=== PATIENT | female | born 1995 | race Caucasian/White ===

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

== ENCOUNTER 2017-04-28 21:41 | Emergency (ER) | payer MEDICAID ==
[~2017-04-28] VITALS: Ht 162.6 cm; Wt 72.0 kg
[~2017-04-28 21:41] MED LIST changes: +NITR-58 PO
[2017-04-28 21:46] VITALS: Ht 162.6 cm; Wt 72.0 kg
[2017-04-28] MEDS ORDERED: KETOROLAC 60 MG INJ IM STA (22:41)
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
[2017-04-29] MEDS ORDERED: CYCL-319 PO (00:05)
[2017-04-29] MEDS ORDERED: IBUP-1542 PO (00:05)
[2017-04-29 00:18] VITALS: BP 103/57; PULSE 74; RESP 18; TEMP 97.4
== END 2017-04-29 00:18 | disposition home or self-care (01) ==
LOC: FTE 21:41
DX: S39.012A Strain of muscle, fascia and tendon of lower back, initial encounter (principal); R07.9 Chest pain, unspecified; V43.62XA Car passenger injured in collision with other type car in traffic accident, initial encounter
CPT/HCPCS: 71020; 72100; 96372; J1885; Z7502

== ENCOUNTER 2017-05-24 12:32 | Emergency (ER) | payer MEDICAID ==
[~2017-05-24] VITALS: Ht 160 cm; Wt 79.0 kg
[~2017-05-24 12:32] MED LIST changes: +CYCL-319 PO
[2017-05-24 12:33] VITALS: Ht 160 cm; Wt 79.0 kg
--- NOTE | 2017-05-24 15:02 | RADRPT ---
PROCEDURE: Left knee x-ray CLINICAL INDICATION: Knee pain TECHNIQUE: AP, lateral and tunnel views of the left knee were obtained. COMPARISON: None FINDINGS: There is normal mineralization. No acute fracture or dislocation is seen. There are no significant degenerative changes. There is no joint effusion. There is no significant soft tissue swelling. RPTAT: AA IMPRESSION: Normal x-ray of the left knee. .Pj Mckenna MD, MD Date Time Electronically viewed and signed by .Pj Mckenna MD, on 05/24/2017 15:02 .S/
[2017-05-24] MEDS ORDERED: IBUP-1542 PO (15:21)
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
== END 2017-05-24 15:36 | disposition home or self-care (01) ==
LOC: FTE 12:32
DX: M25.562 Pain in left knee (principal)
CPT/HCPCS: 73562; Z7502

== ENCOUNTER 2018-02-08 18:30 | Inpatient (IN) | END 2018-02-12 13:50 | disposition home or self-care (01) | DRG 775 ==

== ENCOUNTER 2018-09-18 18:27 | Emergency (ER) | payer MEDICAID ==
[~2018-09-18] VITALS: Ht 160 cm; Wt 83.6 kg
[~2018-09-18 18:27] MED LIST changes: -CYCL-319 PO; -NITR-58 PO
[2018-09-18 19:00] VITALS: BP 112/66; PULSE 78; RESP 20; Ht 160 cm; Wt 83.6 kg
--- NOTE | 2018-09-18 23:18 | ERD ---
ER Documentation Chief Complaint Chief Complaint vag bleeding yesterday. worse today. 5 weeks preg. +cramping. HPI 23-year-old female presents with vaginal bleeding and cramping since yesterday. She bled approximately 3 pads. She denies any fevers, vomiting, localized abdominal pain. She is a G4 para 3. She is taking vitamins. ROS All systems reviewed and are negative except as per history of present illness. Medications Home Meds Active Scripts Ibuprofen* (Ibuprofen*) 600 Mg Tablet, 600 MG PO Q6, #60 TAB 0 Refills Prov:VINNIE MENDOZA MD 02/11/18 Reported Medications Calcium Carbonate/Vitamin D3 (OYSTER SHELL CALCIUM TABLET) 1 Each Tablet, 1 EACH PO DAILY, TAB 07/13/16 Ferrous Sulfate (Iron) 325 Mg Capsule.er, 325 MG PO DAILY, CAP 07/13/16 #48/Iron Cb&Glu/Fa/B6 (CITRANATAL B-CALM COMBO PACK) 1 Each Tablet.seq, 1 EACH PO 04/01/14 Allergies Allergies: Coded Allergies: No Known Allergy (Unverified , 11/08/16) PMhx/Soc Medical and Surgical Hx: pt denies Medical Hx, pt denies Surgical Hx History of Surgery: No Anesthesia Reaction: No Hx Neurological Disorder: No Hx Respiratory Disorders: No Hx Cardiac Disorders: No Hx Psychiatric Problems: No Hx Miscellaneous Medical Probl: No Hx Alcohol Use: No Hx Substance Use: No Hx Tobacco Use: No Smoking Status: Never smoker FmHx Family History: No diabetes, No coronary disease, No other Physical Exam Vitals Vital Signs Date Temp Pulse Resp B/P (MAP) Pulse Ox O2 O2 Flow FiO2 Time Delivery Rate 09/18/18 99.2 78 20 112/66 98 19:00 (81) Physical Exam Const: No acute distress Head: Atraumatic Eyes: Normal Conjunctiva ENT: Normal External Ears, Nose and Mouth. Neck: Full range of motion. No meningismus. Resp: Clear to auscultation bilaterally Cardio: Regular rate and rhythm, no murmurs Abd: Soft, non tender, non distended. Normal bowel sounds Skin: No petechiae or rashes Back: No midline or flank tenderness Ext: No cyanosis, or edema Neur: Awake and alert Psych: Normal Mood and Affect Result Diagram: 09/18/182 Results 24 hrs Laboratory Tests Test 09/18/18 22:12 09/18/18 22:45 White Blood Count 10.3 10^3/ul Red Blood Count 4.68 10^6/ul Hemoglobin 13.3 g/dl Hematocrit 41.7 % Mean Corpuscular Volume 89.1 fl Mean Corpuscular Hemoglobin 28.4 pg Mean Corpuscular Hemoglobin Concent 31.9 g/dl Red Cell Distribution Width 14.0 % Platelet Count 196 10^3/UL Mean Platelet Volume 12.4 fl Immature Granulocytes % 0.300 % Neutrophils % 70.2 % Lymphocytes % 22.0 % Monocytes % 6.3 % Eosinophils % 0.9 % Basophils % 0.3 % Nucleated Red Blood Cells % 0.0 /100WBC Immature Granulocytes # 0.030 10^3/ul Neutrophils # 7.2 10^3/ul Lymphocytes # 2.3 10^3/ul Monocytes # 0.7 10^3/ul Eosinophils # 0.1 10^3/ul Basophils # 0.0 10^3/ul Nucleated Red Blood Cells # 0.0 10^3/ul Beta HCG, Quantitative 2438.6 mIU/ml Urine Color RED Urine Clarity CLOUDY Urine pH 6.0 Urine Specific [place] 1.023 Urine Ketones NEGATIVE mg/dL Urine Nitrite NEGATIVE mg/dL Urine Bilirubin NEGATIVE mg/dL Urine Urobilinogen NEGATIVE mg/dL Urine Leukocyte Esterase NEGATIVE Blanca/ul Urine Microscopic RBC > 182 /HPF Urine Microscopic WBC 0 /HPF Urine Hemoglobin 3+ mg/dL Urine Glucose NEGATIVE mg/dL Urine Total Protein 2+ mg/dl Procedures/MDM Pelvic ultrasound shows approximately 5-week intrauterine with positive heart tones without acute abnormalities. Patient is Rh+. Quantitative hCG is 2438. Patient stable throughout the ER course. Patient presents with vaginal cramping and bleeding first trimester . Differential includes early normal , threatened and less likely ectopic . I am recommending follow-up with primary doctor this week or 2-day recheck for persistent bleeding, pain and cramping. Current signs or symptoms do not suggest appendicitis, UTI, additional emergent cause of presenting complaints. The patient was stable with no new complaints during the ER course. Clinically, there is no current evidence to suggest meningitis, sepsis, acute abdomen, pneumonia, stroke, acute coronary syndrome, pulmonary embolism, aortic dissection or any other emergent condition appearing to require further evaluation or hospitalization. Patient counseled regarding my diagnostic impression and care plan. Prior to discharge all questions answered. Pt agrees with treatment plan and understands strict return precautions. Pt is instructed to follow up with primary care provider within 24-48 hours. Precautio nary instructions provided including instructions to return to the ER if not improving or for any worsening or changing symptoms or concerns. Departure Diagnosis: Primary Impression: Vaginal bleeding in patient at less than 20 weeks ges... Condition: Stable Patient Instructions: Bleeding During Early Additional Instructions: Ultrasound read as normal today. May be normal or early miscarriage. Recommend repeat in 2 days for persistent bleeding, sooner for pain, fevers, new or worsening symptoms. See primary doctor for follow-up this week. CL CAGLE MD Sep 18, 2018 23:18
[2018-09-18] MEDS ORDERED: ACET500C5 PO (23:57)
== END 2018-09-19 00:16 | disposition home or self-care (01) ==
LOC: FTE 18:27
DX: O20.9 Hemorrhage in early pregnancy, unspecified (principal); Z3A.01 Less than 8 weeks gestation of pregnancy
CPT/HCPCS: 76801; 76817; 81001; 84702; 85025; 86900; 86901; Z7502

== ENCOUNTER 2019-03-29 08:24 | Emergency (ER) | payer MEDICAID ==
[~2019-03-29] VITALS: Wt 77.0 kg
[~2019-03-29 08:24] MED LIST changes: +ACET500C5 PO
[2019-03-29] MEDS ORDERED: ACETAMINOPHEN 325 MG TAB PO STA (10:44)
[2019-03-29] MEDS ORDERED: ONDANSETRON (ODT) 4 MG TAB ODT STA (10:44)
[2019-03-29] MEDS ORDERED: NITR-58 PO (12:27)
[2019-03-29] MEDS ORDERED: ACET500C5 PO (12:27)
--- NOTE | 2019-03-29 12:29 | ERD ---
ER Documentation Chief Complaint Chief Complaint low back pain and intermittent spotting since last night. vag drainage. HPI 23 year old female A1 presents to the ED complaining of sudden onset of low back pain that radiates down to her lower abd. She states she is around 16 weeks . She states the pain is a sharp constant pain that feels like contractions. She rates the pain as 7/10. In addition, she reports small amounts of vaginal spotting x 1.5 days. She also notes burning sensation with urination. LMP: November 19 No [facility] doctor Spotting blood Denies blood clots Denies taking any medications Denies previous hx of similar events ROS All systems reviewed and are negative except as per history of present illness. Medications Home Meds Active Scripts Acetaminophen* (Tylophen*) 500 Mg Capsule, 1 CAP PO Q6H PRN for PAIN AND OR ELEVATED TEMP, #20 CAP Prov:CEM NEIL PA-C 03/29/19 Nitrofurantoin Monohyd Macrocr* (Macrobid*) 100 Mg Capsr, 100 MG PO Q12 for 7 Days, CAP Prov:CEM NEIL PA-C 03/29/19 Acetaminophen* (Tylophen*) 500 Mg Capsule, 1 CAP PO Q6H PRN for PAIN AND OR ELEVATED TEMP, #15 CAP Prov:CL CAGLE MD 09/18/18 Ibuprofen* (Ibuprofen*) 600 Mg Tablet, 600 MG PO Q6, #60 TAB 0 Refills Prov:VINNIE MENDOZA MD 02/11/18 Reported Medications Calcium Carbonate/Vitamin D3 (OYSTER SHELL CALCIUM TABLET) 1 Each Tablet, 1 EACH PO DAILY, TAB 07/13/16 Ferrous Sulfate (Iron) 325 Mg Capsule.er, 325 MG PO DAILY, CAP 07/13/16 #48/Iron Cb&Glu/Fa/B6 (CITRANATAL B-CALM COMBO PACK) 1 Each Tablet.seq, 1 EACH PO 04/01/14 Allergies Allergies: Coded Allergies: No Known Allergy (Unverified , 03/29/19) PMhx/Soc History of Surgery: No Anesthesia Reaction: No Hx Neurological Disorder: No Hx Respiratory Disorders: No Hx Cardiac Disorders: No Hx Psychiatric Problems: No Hx Miscellaneous Medical Probl: No Hx Alcohol Use: No Hx Substance Use: No Hx Tobacco Use: No Smoking Status: Never smoker FmHx Family History: No diabetes Physical Exam Vitals Vital Signs Date Temp Pulse Resp B/P (MAP) Pulse Ox O2 O2 Flow FiO2 Time Delivery Rate 03/29/19 98.2 76 18 119/56 99 Room Air 12:37 (77) 03/29/19 98.8 88 18 114/58 99 08:26 (76) Physical Exam Const: No acute distress Head: Atraumatic Eyes: Normal Conjunctiva ENT: Normal External Ears, Nose and Mouth. Neck: Full range of motion. No meningismus. Resp: Clear to auscultation bilaterally Cardio: Regular rate and rhythm, no murmurs Abd: Soft, normally extended abd for her . Tenderness across lower abd, most prevalent at suprapubic region. Normal bowel sounds Skin: No petechiae or rashes Back: Slight flank tenderness on right flank Ext: No cyanosis, or edema Neur: Awake and alert Psych: Normal Mood and Affect Result Diagram: 03/29/19 1056 03/29/19 1056 Results 24 hrs Laboratory Tests Test 03/29/19 10:56 White Blood Count 11.6 10^3/ul Red Blood Count 4.22 10^6/ul Hemoglobin 12.6 g/dl Hematocrit 38.8 % Mean Corpuscular Volume 91.9 fl Mean Corpuscular Hemoglobin 29.9 pg Mean Corpuscular Hemoglobin Concent 32.5 g/dl Red Cell Distribution Width 13.6 % Platelet Count 152 10^3/UL Mean Platelet Volume 12.8 fl Immature Granulocytes % 0.300 % Neutrophils % 78.3 % Lymphocytes % 16.1 % Monocytes % 4.7 % Eosinophils % 0.3 % Basophils % 0.3 % Nucleated Red Blood Cells % 0.0 /100WBC Immature Granulocytes # 0.040 10^3/ul Neutrophils # 9.1 10^3/ul Lymphocytes # 1.9 10^3/ul Monocytes # 0.6 10^3/ul Eosinophils # 0.0 10^3/ul Basophils # 0.0 10^3/ul Nucleated Red Blood Cells # 0.0 10^3/ul Urine Color YELLOW Urine Clarity CLOUDY Urine pH 6.0 Urine Specific [place] 1.016 Urine Ketones NEGATIVE mg/dL Urine Nitrite POSITIVE mg/dL Urine Bilirubin NEGATIVE mg/dL Urine Urobilinogen NEGATIVE mg/dL Urine Leukocyte Esterase 2+ Blanca/ul Urine Microscopic RBC 5 /HPF Urine Microscopic WBC 156 /HPF Urine Squamous Epithelial Cells FEW /HPF Urine Transitional Epithelial Cells FEW /HPF Urine Bacteria FEW /HPF Urine Mucus MODERATE /HPF Urine Hemoglobin 2+ mg/dL Urine Glucose NEGATIVE mg/dL Urine Total Protein 2+ mg/dl Sodium Level 138 mmol/L Potassium Level 3.8 mmol/L Chloride Level 104 mmol/L Carbon Dioxide Level 23 mmol/L Anion Gap 11 Blood Urea Nitrogen 6 mg/dl Creatinine 0.57 mg/dl Est Glomerular Filtrat Rate mL/min > 60 mL/min Glucose Level 92 mg/dl Calcium Level 9.3 mg/dl Beta HCG, Quantitative 44543.0 mIU/ml Current Medications Medications Dose Sig/Joyce Start Time Status Last (Trade) Ordered Route PRN Stop Time Admin Dose Reason Admin 650 mg ONCE STAT 03/29/19 DC 03/29/19 Acetaminophen PO 10:44 10:54 (Tylenol 03/29/19 10:47 Tab) Ondansetron 4 mg ONCE STAT 03/29/19 DC 03/29/19 HCl (Zofran ODT 10:44 10:54 Odt) 03/29/19 10:47 Procedures/MDM ED COURSE: The patient was stable throughout ED course. I kept the patient informed of laboratory and diagnostic imaging results throughout the ED course. DIAGNOSTIC IMAGING: Read by radiologist. PROCEDURE: US OB. CLINICAL INDICATION: Second trimester bleeding TECHNIQUE: Transabdominal views of the pelvis are available for review. COMPARISON: OB ultrasound February 14 FINDINGS: Noted is a single intrauterine gestation in cephalic lie with positive heart beat measuring 149 beats per minute. Biparietal diameter measures 4.4 cm corresponding to a gestational age 19 weeks 1 day. Femur length measures 2.8 cm corresponding to a gestational age 18 weeks 4 days. Abdominal circumference measures 13.3 cm corresponding to a gestational age 18 weeks 6 days. FL/AC ratio is 20.9. Estimated weight 247 g. No gross anomaly is seen on this study, however, no anatomic survey was performed. The placenta is posterior grade 0 without evidence of previa. Maternal cervix was not imaged. Estimated date of delivery is August 26 IMPRESSION: Single intrauterine gestation in cephalic lie with positive heart beat estimated age 18 weeks 4 days. No gross anomaly. Fluid qualitatively normal. Posterior grade 1 placenta without previa. .Terrance Gay MD, MD Date Time Electronically viewed and signed by .Terrance Gay MD, MD on 03/29/2019 11:55 PROCEDURES: none MEDICATIONS GIVEN: None Patient tolerated medication well with no adverse reactions. Patient reported improvement in pain. MEDICAL DECISION MAKING: Patient is a 23 year old A1 18 week female presenting with Low back pain, lower abd pain, and burning urination. On physical exam, pt was in no acute distress and showed tenderness across the lower abd most prevalent at the suprapubic region. She had very slight tenderness at the right flank. OB U/S was performed showing a Single intrauterine gestation in cephalic lie with positive heart beat estimated age 18 weeks 4 days. No gross anomaly. Urinalysis was done and was positive for UTI. This patient presents to the ED with symptoms consistent with a urinary tract infection. Considering the patient history and physical during exam, other differential diagnosis that were considered include acute pyelonephritis, bladder cancer, chlamydial genitourinary infections, herpes simplex, interstitial cystitis, PID, urethrtitis, vaginitis. Vital signs were reviewed. Patient is afebrile. Patient was not hypoxic. Patient was hemodynamically stable. Patient was told to follow up with primary care for further care and management. PRESCRIPTION: tylenol, Macrobid DISCHARGE: At this time, patient is stable for discharge and outpatient management. I have instructed the patient to follow-up with her primary care physician in 1-2 days. I have discussed with the patient the possibility of needing to see a specialist for further workup and imaging studies if symptoms persist. I have instructed the patient to promptly return to the ER for any new or worsening symptoms including increased pain, fever, nausea, vomiting, weakness or LOC. The patient expressed understanding of and agreement with this plan. All questions were answered. Home care instructions were provided. Disclaimer: Inadvertent spelling and grammatical errors are likely due to EHR/dictation software use and do not reflect on the overall quality of patient care. Also, please note that the electronic time recorded on this note does not necessarily reflect the actual time of the patient encounter. Departure Diagnosis: Primary Impression: UTI (urinary tract infection) Urinary tract infection type: acute cystitis Hematuria presence: without hematuria Qualified Codes: N30.00 - Acute cystitis without hematuria Condition: Fair Patient Instructions: Understanding Urinary Tract Infections (UTIs) Referrals: [facility] YOU HAVE RECEIVED A MEDICAL SCREENING EXAM AND THE RESULTS INDICATE THAT YOU DO NOT HAVE A CONDITION THAT REQUIRES URGENT TREATMENT IN THE EMERGENCY DEPARTMENT. FURTHER EVALUATION AND TREATMENT OF YOUR CONDITION CAN WAIT UNTIL YOU ARE SEEN IN YOUR DOCTORS OFFICE WITHIN THE NEXT 1-2 DAYS. IT IS YOUR RESPONSIBILITY TO MAKE AN APPOINTMENT FOR FOLOW-UP CARE. IF YOU HAVE A PRIMARY DOCTOR --you should call your primary doctor and schedule an appointment IF YOU DO NOT HAVE A PRIMARY DOCTOR YOU CAN CALL OUR PHYSICIAN REFERRAL HOTLINE AT IF YOU CAN NOT AFFORD TO SEE A PHYSICIAN YOU CAN CHOSE FROM THE FOLLOWING [facility] [address] [facility]. [facility] [address] [facility] [address] [facility] [address] [facility] [address] [facility]. [facility] [address] [facility]. [facility] YOU HAVE RECEIVED A MEDICAL SCREENING EXAM AND THE RESULTS INDICATE THAT YOU DO NOT HAVE A CONDITION THAT REQUIRES URGENT TREATMENT IN THE EMERGENCY DEPARTMENT. FURTHER EVALUATION AND TREATMENT OF YOUR CONDITION CAN WAIT UNTIL YOU ARE SEEN IN YOUR DOCTORS OFFICE WITHIN THE NEXT 1-2 DAYS. IT IS YOUR RESPONSIBILITY TO MAKE AN APPOINTMENT FOR FOLOW-UP CARE. IF YOU HAVE A PRIMARY DOCTOR --you should call your primary doctor and schedule and appointment IF YOU DO NOT HAVE A PRIMARY DOCTOR YOU CAN CALL OUR PHYSICIAN REFERRAL HOTLINE AT . IF YOU CAN NOT AFFORD TO SEE A PHYSICIAN YOU CAN CHOSE FROM THE FOLLOWING [facility] INSTITUTIONS: [facility] [address] [place] [address] [facility] [address] [place] [address] [facility] [address] [place] [address] [facility] Hours: 8:00 am - 5:00 pm Additional Instructions: Call 1 of the numbers in the packet to find an EMAIL MARKETING ASSISTANT provider to follow-up with and to manage the rest of your with Call your primary care doctor TOMORROW for an appointment during the next 1-2 days.See the doctor sooner or return here if your condition worsens before your appointment time. CEM NEIL PA-C Mar 29, 2019 12:28
[2019-03-29 12:37] VITALS: BP 119/56; PULSE 76; RESP 18
== END 2019-03-29 12:38 | disposition home or self-care (01) ==
LOC: FTE 08:24
DX: O23.12 Infections of bladder in pregnancy, second trimester (principal); Z3A.18 18 weeks gestation of pregnancy
CPT/HCPCS: 36415; 76805; 80048; 81001; 84702; 85025; 86900; 86901; 87086; Z7502; Z7610